=== PATIENT | female | born 1955 | race Caucasian/White ===

== ENCOUNTER → 2021-11-17 | Outpatient (CLI) | payer MEDICARE | LOC: M.MRI 08:00 | PROVIDERS: ATTEND Orthopaedic Surgery | DX: S83.242A Other tear of medial meniscus, current injury, left knee, initial encounter (principal); M17.12 Unilateral primary osteoarthritis, left knee; M25.762 Osteophyte, left knee; M25.462 Effusion, left knee; M23.92 Unspecified internal derangement of left knee; M25.862 Other specified joint disorders, left knee; M65.862 Other synovitis and tenosynovitis, left lower leg; X58.XXXA Exposure to other specified factors, initial encounter; Y93.89 Activity, other specified; Y92.89 Other specified places as the place of occurrence of the external cause; Y99.8 Other external cause status ==

== ENCOUNTER → 2021-12-08 | Outpatient (CLI) | payer MEDICARE ==
[~2021-12-08] MED LIST: ADULT LOW DOSE81 MG PO; EYE MULTIVITAM1 EAC1 PO; FISH OIL 1,0001 EAC9 PO; LIPITOR40 MG PO; LISINOPRIL10 MG PO; MAGNESIUM400 MG PO; OMEPRAZOLE 20 M20 M1 PO; TRIAMTERENE-HC1 EAC3 PO
[2021-12-08 10:40] LABS: ABSOLUTE BASOPHILS 0.1 thou/uL (0.0-0.2); ABSOLUTE EOSINOPHILS 0.4 thou/uL (0.0-0.7); ABSOLUTE LYMPHOCYTES 3.7 thou/uL (0.8-5.3); ABSOLUTE MONOCYTES 1.3 thou/uL (0.0-1.2); ABSOLUTE NEUTROPHILS 3.3 thou/uL (1.6-8.1); BASOPHILS 1.2 %; EOSINOPHILS 4.8 %; HEMATOCRIT 44.8 % (37.0-47.0); LYMPHOCYTES 41.8 %; MCHC 33.5 g/dL (28.0-37.0); MCV 77.7 fL (80.0-100.0); MONOCYTES 14.4 %; MPV 7.7 fl. (7.2-11.1); NUCLEATED RBCS 0 /100WBC; PLATELET COUNT* 360 thou/uL (150-400); POLYS 37.8 %; RBC 5.77 mil/uL (4.20-5.00); RDW-CV 14.8 % (10.5-14.5); WBC 8.8 thou/uL (4.0-11.0)
[2021-12-08 10:54] LABS: PROTIME 10.3 Seconds (9.20-11.50)
[2021-12-08 10:56] LABS: ALBUMIN 4.1 g/dL (3.4-5.0); CALCIUM 8.5 mg/dL (8.5-10.1); CREATININE 0.6 mg/dL (0.6-1.3); TOTAL PROTEIN 7.4 g/dL (6.4-8.2)
[2021-12-08 10:57] LABS: URINE BILIRUBIN NEGATIVE (Negative); URINE BLOOD NEGATIVE (Negative); URINE CLARITY CLEAR; URINE COLOR YELLOW; URINE GLUCOSE-RANDOM NEGATIVE (Negative); URINE KETONES NEGATIVE (Negative); URINE LEUKOCYTES-REFLEX TRACE (Negative); URINE NITRITE-REFLEX NEGATIVE (Negative); URINE PROTEIN NEGATIVE (Negative); URINE UROBILINOGEN 0.2 E.U./dl (0.2-1.0)
[2021-12-08 11:08] LABS: BACTERIA-REFLEX None Seen /HPF (None Seen); CASTS None Seen /LPF (None Seen); CRYSTALS None Seen /LPF (None Seen); SQUAMOUS 0-3 Few /LPF (0-3); URINE RBC 0-2 Rare /HPF (0-2); URINE WBC-REFLEX 0-5 Rare /HPF (0-5)
--- NOTE | 2021-12-08 11:13 | EKG ---
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
== END ==
LOC: M.LAB 06:31
PROVIDERS: ATTEND Orthopaedic Surgery
DX: Z01.812 Encounter for preprocedural laboratory examination (principal); Z01.818 Encounter for other preprocedural examination; M17.12 Unilateral primary osteoarthritis, left knee

== ENCOUNTER → 2021-12-13 | Outpatient (CLI) | payer MEDICARE ==
[~2021-12-13] MED LIST changes: +XARELTO10 MG PO
== END ==
LOC: M.LAB 11:34
PROVIDERS: ATTEND Orthopaedic Surgery
DX: Z01.812 Encounter for preprocedural laboratory examination (principal); Z20.822 Contact with and (suspected) exposure to COVID-19

== ENCOUNTER 2021-12-14 07:22 | Inpatient (IN) | payer MEDICARE ==
[~2021-12-14] VITALS: Ht 152.4 cm; Wt 101.2 kg
--- NOTE | ~2021-12-14 | OP ---
[address] [address] OPERATIVE REPORT Name: JONATHAN ZHOU Room: [address] M.R.#: [id number] Admission: 12/14/21 Attend Phys: Tadeo Woods II Discharge: Date of : 53 Report #: [id number] THIS REPORT FOR: cc: Shalini Dior MD,Shalini Woods,Tadeo Marquez II DO ~ DATE OF SURGERY: 12/14/2021 PREOPERATIVE DIAGNOSIS: Left knee osteoarthritis. POSTOPERATIVE DIAGNOSIS: Left knee osteoarthritis. PROCEDURE: Left total knee arthroplasty, inpatient. SURGEON: Tadeo Woods II, DO. PHONOGRAPH MECHANIC: JOSE G Roth. ANESTHESIA: Per operative record. ESTIMATED BLOOD LOSS: 50 mL ANTIBIOTICS: Per operative record. DRAINS: Medium Hemovac. COMPLICATIONS: None. CONDITION: The patient stable to recovery room. DESCRIPTION OF PROCEDURE: The patient was taken to the operative suite, placed supine on the operating table, given appropriate anesthesia. A well-padded tourniquet applied to the affected thigh, which was inflated to 300 mmHg after gravity exsanguination. The operative knee was sterilely prepped and draped. Surgery began with a midline incision, was carried down to subcutaneous tissues. A medial parapatellar arthrotomy was performed, carried down to bone. Patella was then everted and excess soft tissue removed from around the femur. Femoral cutting block was then applied, checked with a drop rotational alignment, pinned in appropriate position and appropriate cuts were made. A 4-in-1 cutting block was then applied, checked for rotational alignment, pinned in appropriate position and appropriate cuts were made. The tibia was then exposed. Excess meniscus was removed. Retractor was placed on collateral ligaments. Tibial cutting block was then applied, pinned in appropriate position, checked with a drop rotational alignment and slope and appropriate cut was made. The tibial bone was removed. The tibial baseplate was then applied, checked for rotational alignment with the drop steven and pinned in appropriate position[place] [address] OPERATIVE REPORT Name: JONATHAN ZHOU Room: [address] M.R.#: [id number] Admission: 12/14/21 Attend Phys: Tadeo Woods II Discharge: Date of : 53 Report #: [id number] applied and box cut was reamed. This was then trialed with appropriate spacer, which showed excellent fit and fill and excellent stability of the knee through all range of motion. The patella was reamed in appropriate fashion, sized to appropriate size. Three peg holes were drilled and it was then trialed and showed excellent flexion, extension, excellent tracking patella within the groove. These trials were removed. The tibia was punched in appropriate fashion. Bone ends were cleansed with Pulsavac irrigation and cement was mixed, applied to final implants. These were malleted in position and held the knee extension and compressed to allow cement to cure. After it cured, excess was removed utilizing Nerstrand and osteotome. Wound was then copiously irrigated and the final spacer was malleted in position. Tourniquet was deflated. Hemostasis was maintained with electrocautery. Pain cocktail was injected. Capsule was closed with #2 FiberWire and 1 Vicryl in [id number] fashion. Skin was closed with 2-0 Vicryl and running 3-0 Monocryl. Dermabond dressing applied. Braden wrap and PolarCare applied. The patient transported to recovery in stable condition. Counts were correct. By: [id number] Woods II, DO /nt
[~2021-12-14 07:22] MED LIST changes: -XARELTO10 MG PO
[2021-12-14 07:45] VITALS: BP 150/81
[2021-12-14 12:50] VITALS: BP 148/52
[2021-12-14 16:00] VITALS: BP 121/58
[2021-12-14 20:00] VITALS: BP 129/65
[2021-12-15] VITALS: BP 122/42
[2021-12-15 04:00] VITALS: BP 103/51
[2021-12-15 04:35] LABS: HEMATOCRIT 38.4 % (37.0-47.0); HEMOGLOBIN 12.7 gm/dL (12.0-15.0)
[2021-12-15 08:00] VITALS: BP 107/46
[2021-12-15] MEDS ORDERED: XARELTO10 MG PO (12:39)
[2021-12-15 12:40] VITALS: BP 107/46
[2021-12-15 13:00] VITALS: BP 107/46
[2021-12-15 16:00] VITALS: BP 116/54; BP 175/78
== END 2021-12-15 16:25 | disposition home health service (06) | DRG 470 ==
LOC: M.TBA 07:22 → M.2W 07:22 → M.ORTHSURG 09:53 → M.2W 12:09 → M.ORTHSURG 12:11 → M.2W 12-15 16:25
PROVIDERS: Orthopaedic Surgery; ADMIT Internal Medicine; ATTEND Internal Medicine
PROC: 0SRD0J9 Replacement of Left Knee Joint with Synthetic Substitute, Cemented, Open Approach (ICD-10-PCS; principal; 2021-12-14)
DX: M17.12 Unilateral primary osteoarthritis, left knee (principal); Z90.710 Acquired absence of both cervix and uterus; I10 Essential (primary) hypertension; Z96.651 Presence of right artificial knee joint